=== PATIENT | female | born 1990 | race African-American/Black ===

== ENCOUNTER 2020-04-27 19:31 | Emergency (ER) | payer MEDICAID, OTHER ==
[~2020-04-27] VITALS: Ht 170.2 cm; Wt 104.3 kg
[2020-04-27 20:45] VITALS: BP 119/74
[2020-04-27] MEDS ORDERED: IBUPROFEN 800 MG TAB PO ONE (22:00)
== END 2020-04-27 22:07 | disposition home or self-care (01) ==
LOC: ER 19:31
DX: S93.401A Sprain of unspecified ligament of right ankle, initial encounter (principal); Z88.1 Allergy status to other antibiotic agents; X58.XXXA Exposure to other specified factors, initial encounter; Y93.89 Activity, other specified; Y92.89 Other specified places as the place of occurrence of the external cause; Y99.8 Other external cause status
CPT/HCPCS: 73610